=== PATIENT | male | born 1980 | race Asian ===

== ENCOUNTER 2023-10-06 08:35 | Emergency (ER) | payer BC ==
[~2023-10-06] VITALS: Ht 177.8 cm; Wt 90.7 kg
[2023-10-06 08:39] VITALS: TEMP 97
[2023-10-06] MEDS ORDERED: KETOROLAC TROMETHAMINE 30 MG/ML VIAL IV STA (09:00)
[2023-10-06] MEDS: KETOROLAC TROMETHAMINE 30 MG/ML VIAL IM STA (09:21)
[2023-10-06] MEDS: CYCLOBENZAPRINE HCL 10 MG TAB PO ONE (09:21)
[2023-10-06 09:22] LABS: BASOPHILS % 0.4 % (0.0-1.0); EOSINOPHILS % 0.1 % (0.0-6.0); HEMATOCRIT 43.8 % (38.2-49.6); HEMOGLOBIN 13.6 g/dL (14.0-18.0); LYMPHOCYTES # (AUTO) 1.5 (1.0-3.2); LYMPHOCYTES % 21.3 % (18.0-39.1); MEAN CORPUSCULAR HEMOGLOBIN 26.2 pg (28-32); MEAN CORPUSCULAR HGB CONC 31.1 g/dL (31-35); MEAN CORPUSCULAR VOLUME 84.2 fL (81-99); MONOCYTES # (AUTO) 0.4 (0.2-0.8); MONOCYTES % 5.4 % (4.4-11.3); NEUTROPHILS # (AUTO) 4.9 (2.1-6.9); NEUTROPHILS % 72.4 % (38.7-80.0); PLATELET COUNT 382 x10e3/uL (140-360); RED CELL DISTRIBUTION WIDTH 14.2 % (11.7-14.4); WHITE BLOOD COUNT 6.84 x10e3/uL (4.8-10.8)
[2023-10-06 09:44] LABS: CALCIUM 10.2 mg/dL (8.4-10.2); CREATININE, SERUM 0.87 mg/dL (0.72-1.25)
[2023-10-06 09:51] LABS: ANION GAP 13.6 mmol/L (8-16); POTASSIUM 4.6 mmol/L (3.0-5.1)
[2023-10-06 10:38] VITALS: PULSE 79; RESP 15; O2SAT 100
[2023-10-06] MEDS ORDERED: ULTRAM 50MG50 MG PO (11:39)
== END 2023-10-06 12:20 | disposition home or self-care (01) ==
LOC: ER 08:40
DX: S32.029A Unspecified fracture of second lumbar vertebra, initial encounter for closed fracture (principal); X50.9XXA Other and unspecified overexertion or strenuous movements or postures, initial encounter; Y93.B1 Activity, exercise machines primarily for muscle strengthening; M06.00 Rheumatoid arthritis without rheumatoid factor, unspecified site
CPT/HCPCS: 36415; 72125; 72128; 72131; 80048; 83880; 84484; 85025; 93005; 99284; J1885

== ENCOUNTER 2024-03-24 04:32 | Emergency (ER) | payer BC ==
[~2024-03-24] VITALS: Ht 177.8 cm; Wt 90.7 kg
[~2024-03-24 04:32] MED LIST: ULTRAM 50MG50 MG PO
[2024-03-24 04:35] VITALS: PULSE 98; RESP 20; TEMP 98.2; O2SAT 100
[2024-03-24 05:05] LABS: BASOPHILS % 0.3 % (0.0-1.0); EOSINOPHILS % 0.1 % (0.0-6.0); HEMATOCRIT 46.6 % (38.2-49.6); HEMOGLOBIN 15.5 g/dL (14.0-18.0); LYMPHOCYTES # (AUTO) 1.2 (1.0-3.2); LYMPHOCYTES % 12.5 % (18.0-39.1); MEAN CORPUSCULAR HEMOGLOBIN 27.8 pg (28-32); MEAN CORPUSCULAR HGB CONC 33.3 g/dL (31-35); MEAN CORPUSCULAR VOLUME 83.5 fL (81-99); MONOCYTES # (AUTO) 0.5 (0.2-0.8); NEUTROPHILS # (AUTO) 7.5 (2.1-6.9); NEUTROPHILS % 81.6 % (38.7-80.0); PLATELET COUNT 288 x10e3/uL (140-360); RED BLOOD COUNT 5.58 x10e6/uL (4.3-5.7); RED CELL DISTRIBUTION WIDTH 13.5 % (11.7-14.4); WHITE BLOOD COUNT 9.23 x10e3/uL (4.8-10.8)
[2024-03-24 05:14] LABS: CLARITY,URINE CLOUDY (CLEAR); COLOR,URINE YELLOW (YELLOW)
[2024-03-24] MEDS: ONDANSETRON HCL INJ 2MG/ML 2ML 2 MG/ML VIAL IV STA (05:14)
[2024-03-24 05:15] LABS: BILIRUBIN,URINE NEGATIVE (NEGATIVE); GLUCOSE, URINE NEGATIVE (NEGATIVE); KETONES,URINE NEGATIVE (NEGATIVE); LEUKOCYTE ESTERASE ,URINE NEGATIVE (NEGATIVE); NITRITE,URINE NEGATIVE (NEGATIVE); PH,URINE 5.5 (5 - 7); PROTEIN,URINE DIPSTICK 1+ (NEGATIVE); URINE UROBILINOGEN 0.2 mg/dL (0.2 - 1)
[2024-03-24] MEDS: SODIUM CHLORIDE 0.9% 1000ML 1,000 ML IV ONE (05:15)
[2024-03-24] MEDS: Morphine 4mg INJECTION 4 MG/ML INJ IV ONE (05:15)
[2024-03-24 05:19] LABS: ALBUMIN 4.4 g/dL (3.5-5.0); ALBUMIN/GLOBULIN RATIO 1.3 (0.8-2.0); ANION GAP 14.8 mmol/L (8-16); BILIRUBIN,TOTAL 0.4 mg/dL (0.2-1.2); CALCIUM 9.3 mg/dL (8.4-10.2); CREATININE, SERUM 1.2 mg/dL (0.72-1.25); POTASSIUM 4.8 mmol/L (3.5-5.1); TOTAL PROTEIN 7.8 g/dL (6.5-8.1)
[2024-03-24] MEDS ORDERED: IOPAMIDOL 370 MG/ML 100 ML INFUS..BTL INJ ONE (05:25)
[2024-03-24 05:38] LABS: BACTERIA,URINE FEW /HPF; RBC,URINE 0-5 /HPF (0-5); URIC ACID CRYSTALS,URINE MANY; WBC,URINE (MAN) 0-5 /HPF (0-5)
[2024-03-24] MEDS: KETOROLAC TROMETHAMINE 30 MG/ML VIAL IV STA (06:29)
[2024-03-24] MEDS ORDERED: KETOROLAC TROME10 MG PO (07:07)
[2024-03-24] MEDS ORDERED: FLOMAX0.4 MG PO (07:07)
[2024-03-24] MEDS ORDERED: ONDANSETRON ODT4 MG PO (07:07)
[2024-03-24] MEDS ORDERED: ULTRAM 50MG50 MG PO (07:07)
== END 2024-03-24 07:25 | disposition home or self-care (01) ==
LOC: ER 04:35
DX: R10.32 Left lower quadrant pain (principal); N13.2 Hydronephrosis with renal and ureteral calculous obstruction; R11.2 Nausea with vomiting, unspecified; I10 Essential (primary) hypertension; M19.09 Primary osteoarthritis, other specified site
CPT/HCPCS: 36415; 74177; 80053; 81001; 83690; 85025; 99284; J1885; J2270; J2405; J7030; Q9967

== ENCOUNTER 2024-10-09 20:04 | Inpatient (IN) | payer BC ==
[~2024-10-09] VITALS: Ht 180.3 cm; Wt 99.8 kg
[~2024-10-09 20:04] MED LIST changes: +FLOMAX0.4 MG PO; +KETOROLAC TROME10 MG PO; +ONDANSETRON ODT4 MG PO
[2024-10-09] MEDS: ACETAMINOPHEN 325 MG TAB PO STA (21:17)
[2024-10-09 21:34] LABS: BASOPHILS % 0.2 % (0.0-1.0); EOSINOPHILS % 0.0 % (0.0-6.0); LYMPHOCYTES % 14.1 % (18.0-39.1); MONOCYTES % 9.7 % (4.4-11.3); NEUTROPHILS % 74.8 % (38.7-80.0); RED CELL DISTRIBUTION WIDTH 12.8 % (11.7-14.4)
[2024-10-09 21:47] LABS: CORONAVIRUS COVID-19 AG NEGATIVE (NEGATIVE)
[2024-10-09 21:49] LABS: EST GLOMERULAR FILTRATION RATE 85.0 ML/MIN (>=60)
[2024-10-09] MEDS ORDERED: PIPERACILLIN/TAZOBACTAM 3.375 GM VIAL ONE (22:00)
[2024-10-09] MEDS: SODIUM CHLORIDE 0.9% 1000ML 2,000 ML IV STA ×2 (22:10→23:35)
[2024-10-09] MEDS: IBUPROFEN 600 MG TAB PO STA (22:16)
[2024-10-09] MEDS ORDERED: Morphine 4mg INJECTION 4 MG/ML INJ IV PRN (22:30)
[2024-10-09] MEDS ORDERED: ONDANSETRON HCL INJ 2MG/ML 2ML 2 MG/ML VIAL IV PRN (22:30)
[2024-10-09 23:05] LABS: LEUKOCYTE ESTERASE ,URINE NEGATIVE (NEGATIVE); PROTEIN,URINE DIPSTICK TRACE (NEGATIVE); URINE UROBILINOGEN 0.2 mg/dL (0.2 - 1)
[2024-10-09 23:26] LABS: EPITHELIAL CELLS,URINE FEW /LPF
[2024-10-09 23:41] VITALS: PULSE 103; RESP 24; TEMP 100
[2024-10-10] VITALS (9 sets, daily range): BP systolic 118–152; BP diastolic 74–93; PULSE 92–120; RESP 17–20; TEMP 99.2–103; O2SAT 99–100
[2024-10-10] MEDS: ACETAMINOPHEN 325 MG TAB PO PRN (04:16)
[2024-10-10 05:59] LABS: BASOPHILS % 0.2 % (0.0-1.0); EOSINOPHILS % 0.0 % (0.0-6.0); LYMPHOCYTES % 8.8 % (18.0-39.1); MONOCYTES % 6.6 % (4.4-11.3); NEUTROPHILS % 83.2 % (38.7-80.0); RED CELL DISTRIBUTION WIDTH 13.0 % (11.7-14.4)
[2024-10-10] MEDS: SODIUM CHLORIDE 0.9% 1000ML 1,000 ML IV SCH (06:17)
[2024-10-10 06:37] LABS: EST GLOMERULAR FILTRATION RATE 84.0 ML/MIN (>=60)
[2024-10-10] MEDS: AZITHROMYCIN 250 MG TAB PO SCH (11:39)
[2024-10-10 13:27] LABS: INFLUENZA A NAA POSITIVE (NEGATIVE); INFLUENZA B NAA NEGATIVE (NEGATIVE)
[2024-10-10] MEDS: OSELTAMIVIR PHOSPHATE 75 MG CAP PO SCH (17:35)
[2024-10-10 19:59] LABS: HIV 1&2 AB SCREEN NON-REACTIVE (NONREACTIVE); HIV- 1 P24 AG SCREEN NON-REACTIVE (NONREACTIVE)
[2024-10-10] MEDS ORDERED: POLYETHYLENE GLYCOL 3350 17 GM PACK PO PRN (21:00)
[2024-10-10] MEDS ORDERED: LISINOPRIL20 MG PO (22:14)
[2024-10-10] MEDS ORDERED: IOPAMIDOL 370 MG/ML 100 ML INFUS..BTL INJ ONE (22:51)
[2024-10-11] VITALS (7 sets, daily range): BP systolic 105–155; BP diastolic 63–99; PULSE 86–103; RESP 18–20; TEMP 98.6–100.2; O2SAT 97–100
[2024-10-11 10:42] LABS: RHEUMATOID FACTOR 14.2 IU/mL (<14.0)
[2024-10-11 14:09] LABS: LEUKOCYTE ESTERASE ,URINE NEGATIVE (NEGATIVE); PROTEIN,URINE DIPSTICK 2+ (NEGATIVE); URINE UROBILINOGEN 2 mg/dL (0.2 - 1)
[2024-10-11 14:11] LABS: EPITHELIAL CELLS,URINE FEW /LPF
[2024-10-11] MEDS: ENOXAPARIN SOD INJ 40 MG/0.4 ML SYR SC SCH (17:19)
[2024-10-12] VITALS: BP 125/81; PULSE 101; RESP 20; TEMP 102.6; O2SAT 100
[2024-10-12] MEDS: IBUPROFEN 600 MG TAB PO PRN (01:10)
[2024-10-12 04:00] VITALS: BP 112/68; PULSE 74; RESP 20; TEMP 98.2; O2SAT 99
[2024-10-12 07:26] LABS: BASOPHILS % 0.7 % (0.0-1.0); EOSINOPHILS % 0.0 % (0.0-6.0); LYMPHOCYTES % 31.1 % (18.0-39.1); MONOCYTES % 8.1 % (4.4-11.3); NEUTROPHILS % 59.8 % (38.7-80.0); RED CELL DISTRIBUTION WIDTH 13.1 % (11.7-14.4)
[2024-10-12 08:03] LABS: EST GLOMERULAR FILTRATION RATE 95.0 ML/MIN (>=60)
[2024-10-12 08:29] VITALS: BP 142/96; PULSE 88; RESP 18; TEMP 98.6; O2SAT 100
[2024-10-12 10:56] LABS: LYMPHOCYTES % (MANUAL) 38 % (19-48); MONOCYTES % (MANUAL) 2 % (3.4-9.0); NEUTROPHILS % (MANUAL) 58 % (40-74); REACTIVE LYMPHOCYTES 2
[2024-10-12 10:57] LABS: PLATELET ESTIMATE SLIGHTLY DECREASED; PLATELET MORPHOLOGY COMMENT NORMAL
[2024-10-12 13:19] VITALS: BP 124/74; PULSE 82; RESP 18; TEMP 98.8; O2SAT 100
[2024-10-12] MEDS: POTASSIUM CHLORIDE 10MEQ EA PO ONE (13:37)
[2024-10-12 16:35] VITALS: BP 149/99; PULSE 95; RESP 18; TEMP 99.7; O2SAT 100
[2024-10-12 20:00] VITALS: BP 115/76; PULSE 84; RESP 20; TEMP 97.3; O2SAT 100
[2024-10-13] VITALS (8 sets, daily range): BP systolic 119–160; BP diastolic 78–99; PULSE 86–105; RESP 16–20; TEMP 97.7–100.7; O2SAT 96–100
[2024-10-13 05:47] LABS: BASOPHILS % 0.3 % (0.0-1.0); EOSINOPHILS % 0.0 % (0.0-6.0); LYMPHOCYTES % 24.4 % (18.0-39.1); MONOCYTES % 5.4 % (4.4-11.3); NEUTROPHILS % 69.6 % (38.7-80.0); RED CELL DISTRIBUTION WIDTH 13.3 % (11.7-14.4)
[2024-10-13 06:25] LABS: EST GLOMERULAR FILTRATION RATE 100.0 ML/MIN (>=60)
[2024-10-13 07:47] LABS: BAND NEUTROPHILS % (MANUAL) 6 %; LYMPHOCYTES % (MANUAL) 18 % (19-48); MONOCYTES % (MANUAL) 6 % (3.4-9.0); NEUTROPHILS % (MANUAL) 69 % (40-74); REACTIVE LYMPHOCYTES 1
[2024-10-13 07:48] LABS: PLATELET ESTIMATE ADEQUATE; PLATELET MORPHOLOGY COMMENT NORMAL
[2024-10-13 08:56] LABS: HSV 1 BY PCR Negative (Negative); HSV 2 BY PCR Negative (Negative)
[2024-10-13] MEDS: POTASSIUM CHLORIDE 10MEQ EA PO ONE (10:33)
[2024-10-13] MEDS: IBUPROFEN 600 MG TAB PO SCH (16:27)
[2024-10-13] MEDS: ACETAMINOPHEN 325 MG TAB PO SCH (16:29)
[2024-10-13 16:51] LABS: LEGIONELLA ANTGEN (U) Negative (Negative)
[2024-10-13] MEDS: PREDNISONE 5 MG TAB PO SCH (20:32)
[2024-10-14] VITALS (7 sets, daily range): BP systolic 121–181; BP diastolic 73–98; PULSE 84–96; RESP 18–20; TEMP 99–102.9; O2SAT 100
[2024-10-14 02:47] LABS: LEUKOCYTE ESTERASE ,URINE NEGATIVE (NEGATIVE)
[2024-10-14 02:48] LABS: PROTEIN,URINE DIPSTICK NEGATIVE (NEGATIVE); URINE UROBILINOGEN 0.2 mg/dL (0.2 - 1)
[2024-10-14 03:03] LABS: EPITHELIAL CELLS,URINE FEW /LPF; WBC,URINE (MAN) 0-5 /HPF (0-5)
[2024-10-14 03:08] LABS: CREATININE,URINE RANDOM 78.87 mg/dL (63-166); TOTAL PROTEIN, URINE 11.6 mg/dL (1-14)
[2024-10-14 05:27] LABS: BASOPHILS % 0.5 % (0.0-1.0); EOSINOPHILS % 0.0 % (0.0-6.0); LYMPHOCYTES % 30.3 % (18.0-39.1); MONOCYTES % 8.0 % (4.4-11.3); NEUTROPHILS % 60.7 % (38.7-80.0); RED CELL DISTRIBUTION WIDTH 13.3 % (11.7-14.4)
[2024-10-14 06:10] LABS: EST GLOMERULAR FILTRATION RATE 95.0 ML/MIN (>=60)
[2024-10-14 09:59] LABS: LYMPHOCYTES % (MANUAL) 22 % (19-48); MONOCYTES % (MANUAL) 4 % (3.4-9.0); NEUTROPHILS % (MANUAL) 69 % (40-74); PLATELET ESTIMATE ADEQUATE; PLATELET MORPHOLOGY COMMENT NORMAL; RBC MORPHOLOGY COMMENT NORMAL; REACTIVE LYMPHOCYTES 5
[2024-10-14 12:02] LABS: LEUKOCYTE ESTERASE ,URINE NEGATIVE (NEGATIVE); PROTEIN,URINE DIPSTICK NEGATIVE (NEGATIVE); URINE UROBILINOGEN 0.2 mg/dL (0.2 - 1)
[2024-10-14 12:53] LABS: EPITHELIAL CELLS,URINE RARE /LPF
[2024-10-14] MEDS: LISINOPRIL 20 MG TAB PO SCH (13:22)
[2024-10-14 14:14] LABS: INFLUENZA A NAA NEGATIVE (NEGATIVE); INFLUENZA B NAA NEGATIVE (NEGATIVE)
[2024-10-14 17:44] LABS: HISTOPLASMA ANTIGEN (U) Negative (<0.2 ng/mL)
[2024-10-15 06:47] LABS: TOXOPLASMA IGG ANTIBODY <3.0
[2024-10-15 06:48] LABS: TOXOPLASMA IGM ANTIBODY <3.0
[2024-10-15 06:49] LABS: VARICELLA IGG ANTIBODY Reactive
[2024-10-15 06:50] LABS: VARICELLA IGM ANTIBODY 0.97
[2024-10-15 06:52] LABS: HEPATITIS B CORE IGM (P) Negative
[2024-10-15 06:53] LABS: HEPATITIS A ANTIBODY IGM (P) Negative; HEPATITIS B SURFACE AG (P) Negative
[2024-10-15 07:03] LABS: CMV IGG ANTIBODY 3.70
[2024-10-15 08:12] LABS: COMPLEMENT C3 147 mg/dL (82-167)
[2024-10-15] MEDS ORDERED: AMLODIPINE BESYLATE 10 MG TAB PO SCH (09:00)
[2024-10-15 09:20] LABS: COMPLEMENT C4 17 mg/dL (12-38)
[2024-10-16 05:11] LABS: ANTI-MITOCHONDRIAL AB SCREEN <20.0 Units (0.0-20.0); SMOOTH MUSCLE ANTIBODY(ACTIN) 20 Units (0-19)
[2024-10-16 17:11] LABS: ANTI SM/RNP 0.2 AI (0.0-0.9); COMPLEMENT C4 17 mg/dL (12-38); SCLERODERMA 70 ANTIBODY <0.2 AI (0.0-0.9); SMITH ABS <0.2 AI (0.0-0.9)
[2024-10-16 19:12] LABS: MYELOPEROXIDASE AB (MPO) <0.2 units (0.0-0.9)
[2024-10-17 05:49] LABS: ANTI DNA DS ANTIBODY <1 IU/mL (0-9); ANTI-MITOCHONDRIAL AB SCREEN <20.0 Units (0.0-20.0); ANTI-SM 17 Units (0-19); ANTI-STRIATED MUSCLE AB Negative (Neg:<1:100); GASTRIC PARIETAL CELL ANTIBODY 0.7 Units (0.0-20.0); THYROID PEROXIDASE ANTIBODY 9 IU/mL (0-34)
[2024-10-17 05:49] LABS: PROTEINASE-3 ANTIBODY <0.2 units (0.0-0.9)
[2024-10-20 09:33] LABS: CMV IGM ANTIBODY <30.0
[2024-10-20 12:10] LABS: cANCA TITER <1:20 titer (Neg:<1:20)
[2024-10-20 18:02] LABS: ATYPICAL pANCA TITER <1:20 titer (Neg:<1:20); pANCA TITER <1:20 titer (Neg:<1:20)
== END 2024-10-14 18:20 | disposition home or self-care (01) | DRG 871 ==
LOC: ER 21:03 → ERHOLD 22:28 → MED/SURG2 10-10
PROVIDERS: ADMIT Internal Medicine; ATTEND Internal Medicine
PROC: 3E0333Z Introduction of Anti-inflammatory into Peripheral Vein, Percutaneous Approach (ICD-10-PCS; principal; 2024-10-09)
DX: A41.89 Other specified sepsis (principal); D61.811 Other drug-induced pancytopenia; J10.00 Influenza due to other identified influenza virus with unspecified type of pneumonia; R57.9 Shock, unspecified; R16.2 Hepatomegaly with splenomegaly, not elsewhere classified; R73.03 Prediabetes; M32.9 Systemic lupus erythematosus, unspecified; M05.9 Rheumatoid arthritis with rheumatoid factor, unspecified; K76.0 Fatty (change of) liver, not elsewhere classified; I10 Essential (primary) hypertension; N20.0 Calculus of kidney; M47.9 Spondylosis, unspecified; R53.81 Other malaise; Z11.52 Encounter for screening for COVID-19; Z79.69 Long term (current) use of other immunomodulators and immunosuppressants; F17.290 Nicotine dependence, other tobacco product, uncomplicated; Z82.49 Family history of ischemic heart disease and other diseases of the circulatory system; Z83.3 Family history of diabetes mellitus
CPT/HCPCS: 36415; 71045; 71260; 74177; 76700; 80053; 81001; 82550; 82570; 83516; 83518; 83605; 83690; 83735; 83880; 84156; 84484; 84550; 85025; 85597; 85613; 85730; 86021; 86039; 86160; 86225; 86235; 86255; 86256; 86376; 86431; 86644; 86645; 86665; 86777; 86778; 86787; 87040; 87070; 87086; 87385; 87390; 87449; 87529; 93005; 93306; 99284; G0433; G0435; J1650; J2543; J7030; J7512; Q9967